=== PATIENT | female | born 1950 | race Caucasian/White ===

== ENCOUNTER 2022-03-07 03:06 | Inpatient (IN) | payer MEDICARE ==
[2022-03-07 03:52] LABS: #Basophils 0.1 10x3/uL (0.0-0.2); #Eosinphils 1.8 10x3/uL (0.0-0.5); #Monocytes 0.8 10x3/uL (0.0-1.1); %Basophils 0.4 % (0.0-2.0); %Eosinophils 10.6 % (0.0-6.0); %Lymphocytes 17.6 % (18.0-47.0); %Monocytes 4.6 % (0.0-10.0); Hemoglobin 14.1 g/dL (12.0-15.5); Mean Corpuscular HGB CONC 33.3 g/dL (32.0-36.0); Mean Corpuscular Hemoglobin 29.5 pg (27.0-33.0); Mean Corpuscular Volume 88.5 fl (81.6-98.3); Mean Platelet Volume 9.8 fl (7.4-10.4); Platelet Count 322 10x3/uL (150-450); RBC Distribution Width 14.1 % (11.5-14.5); Red Blood Cell (RBC) Count 4.78 10x6/uL (3.90-5.03); White Blood Cell (WBC) Count 16.6 10x3/uL (3.5-10.5)
[2022-03-07 04:08] LABS: ALT (SGPT) 18 U/L (8-55); AST (SGOT) 23 U/L (5-34); Albumin 3.9 g/dL (3.4-4.8); Alkaline Phosphatase 75 U/L (40-110); Anion Gap 17 mmol/L (10-20); BUN (Urea Nitrogen) 9 mg/dL (9.8-20.1); Bilirubin, Total 0.4 mg/dL (0.2-1.2); Calc. Creatinine Clearance 0 mL/min (70-130); Calcium 9.6 mg/dL (7.8-10.44); Carbon Dioxide 25 mmol/L (23-31); Chloride 99 mmol/L (98-107); Globulin 4.3 g/dL (2.4-3.5); Glucose 103 mg/dL (83-110); Potassium 3.5 mmol/L (3.5-5.1); Protein, Total 8.2 g/dL (5.8-8.1); Sodium 137 mmol/L (136-145)
[2022-03-07 04:41] LABS: CKMB 6.1 ng/mL (0-6.6)
[2022-03-07 04:56] LABS: Bilirubin Neg (Negative); Blood, Urine 10 (Negative); Clarity Cloudy (Clear); Glucose, Urine (Dipstick) 250 mg/dL (Negative); Ketone, Urine Negative (Negative); Leukocyte 500 (Negative); Nitrite Positive (Negative); Protein, Urine (Dipstick) 15 mg/dl (Neg-Trace); Urobilinogen Normal mg/dL (Less than 2)
[2022-03-07 05:05] LABS: RBC/HPF 0-3 HPF (0-3)
[2022-03-07 05:06] LABS: Bacteria/HPF 3+ HPF (None Seen)
[2022-03-07] MEDS ORDERED: cefTRIAXone\\ROCEPHIN 2 GM VIAL ONE (05:10)
[2022-03-07] MEDS ORDERED: Acetaminophen 500 MG TAB ONE (05:22)
[2022-03-07 05:31] LABS: SARS-CoV-2 NAA Rapid Test Not Detected (NotDetected)
[2022-03-07] MEDS ORDERED: Senokot S 8.6-50 MG TAB PO PRN (06:14)
[2022-03-07] MEDS ORDERED: Ondansetron PF 4 MG/2 ML Vial IVP PRN (06:14)
[2022-03-07] MEDS ORDERED: Ondansetron ODT 4 MG TAB PO PRN (06:14)
[2022-03-07] MEDS ORDERED: HYDROcodone/Acetaminophen 7.5/325 mg Tablet PO PRN (06:14)
[2022-03-07 06:17] VITALS: BMI 34.2
[2022-03-07] MEDS: D5 1/2 NS w/20 mEq KCL 1,000 ML IV SCH ×2 (06:40→18:28)
[2022-03-07] MEDS: traMADol HCl 50 MG TAB PO PRN ×2 (06:41→22:11)
[2022-03-07] MEDS ORDERED: Potassium Chloride 20 MEQ TAB PO SCH (07:00)
[2022-03-07 07:36] LABS: Magnesium 1.6 mg/dL (1.6-2.6)
[2022-03-07 07:42] LABS: Troponin I 0.113 ng/mL (< 0.028)
[2022-03-07] MEDS: HYDROcodone/Acetaminophen 7.5/325 mg Tablet PO PRN ×3 (08:23→20:49)
[2022-03-07] MEDS: Enoxaparin Sodium 40 MG/0.4 ML SYRINGE SC SCH (08:25)
[2022-03-07] MEDS ORDERED: Lisinopril 10 MG TAB PO SCH (09:00)
[2022-03-07] MEDS ORDERED: Amlodipine 10 MG TAB PO SCH (09:00)
[2022-03-07 11:00] LABS: Troponin I 0.115 ng/mL (< 0.028)
[2022-03-07] MEDS: Morphine 2 MG/ML VIAL SLOW IVP PRN ×2 (16:47→23:48)
[2022-03-07] MEDS: Atorvastatin Calcium 10 MG TAB PO SCH (20:50)
[2022-03-07] MEDS: Lantus 1000 UNITS/10 ML VIAL SC SCH (22:20)
[2022-03-07 23:32] LABS: Glucose POC Confirmation 134 mg/dl (83-110)
[2022-03-08] MEDS: HYDROcodone/Acetaminophen 7.5/325 mg Tablet PO PRN ×5 (02:49→23:02)
[2022-03-08] MEDS ORDERED: D5 1/2 NS w/20 mEq KCL 1,000 ML IV SCH (03:00)
[2022-03-08] MEDS: cefTRIAXone\\ROCEPHIN 2 GM in Sodium Chloride 0.9% 100 ML IVPB SCH (04:50)
[2022-03-08 05:05] LABS: Hemoglobin 13.5 g/dL (12.0-15.5); Mean Corpuscular HGB CONC 32.8 g/dL (32.0-36.0); Mean Corpuscular Hemoglobin 28.9 pg (27.0-33.0); Mean Corpuscular Volume 88.2 fl (81.6-98.3); Mean Platelet Volume 9.9 fl (7.4-10.4); Platelet Count 346 10x3/uL (150-450); RBC Distribution Width 14.6 % (11.5-14.5); Red Blood Cell (RBC) Count 4.67 10x6/uL (3.90-5.03); White Blood Cell (WBC) Count 12.9 10x3/uL (3.5-10.5)
[2022-03-08] MEDS: traMADol HCl 50 MG TAB PO PRN ×3 (05:11→20:43)
[2022-03-08 05:17] LABS: Anion Gap 14 mmol/L (10-20); BUN (Urea Nitrogen) 8 mg/dL (9.8-20.1); Calc. Creatinine Clearance 77 mL/min (70-130); Calcium 9.3 mg/dL (7.8-10.44); Carbon Dioxide 26 mmol/L (23-31); Chloride 103 mmol/L (98-107); Glucose 140 mg/dL (83-110); Potassium 3.6 mmol/L (3.5-5.1); Sodium 139 mmol/L (136-145)
[2022-03-08 06:14] LABS: MDiff Complete? YES
[2022-03-08 06:15] LABS: Platelet Morphology Comment Appears Adequate; RBC Morphology Normal
[2022-03-08 06:18] LABS: Band 1 % (5-11); Eosinophils 16 % (0-10); Lymphocytes 49 % (21-51); Monocytes 3 % (0-10); Neutrophil 31 % (42-75)
[2022-03-08] MEDS ORDERED: cefTRIAXone Sodium 2,000 MG in Syringe 0 ML IVPB SCH (06:30)
[2022-03-08] MEDS: Morphine 2 MG/ML VIAL SLOW IVP PRN (08:32)
[2022-03-08] MEDS: Enoxaparin Sodium 40 MG/0.4 ML SYRINGE SC SCH (08:32)
[2022-03-08] MEDS: Amlodipine 10 MG TAB PO SCH (08:34)
[2022-03-08] MEDS: Empagliflozin 10 MG TAB PO SCH (08:40)
[2022-03-08] MEDS ORDERED: TRAMADOL HCL 300 MG PO SCH (09:00)
[2022-03-08] MEDS ORDERED: Lisinopril 10 MG TAB PO SCH (09:00)
[2022-03-08] MEDS: Labetalol HCl 100 MG/20 ML VIAL SLOW IVP PRN ×2 (18:51→23:17)
[2022-03-08] MEDS: Atorvastatin Calcium 10 MG TAB PO SCH (20:43)
[2022-03-08] MEDS: Lantus 1000 UNITS/10 ML VIAL SC SCH (20:45)
[2022-03-09 05:31] LABS: #Basophils 0.1 10x3/uL (0.0-0.2); #Eosinphils 2.7 10x3/uL (0.0-0.5); #Monocytes 0.8 10x3/uL (0.0-1.1); #Neutrophils 3.7 10x3/uL (1.5-8.4); %Basophils 0.7 % (0.0-2.0); %Eosinophils 20.5 % (0.0-6.0); %Lymphocytes 43.6 % (18.0-47.0); %Monocytes 6.4 % (0.0-10.0); %Neutrophils 27.9 % (40.0-75.0); Hemoglobin 13.7 g/dL (12.0-15.5); Mean Corpuscular HGB CONC 33.3 g/dL (32.0-36.0); Mean Corpuscular Hemoglobin 29.4 pg (27.0-33.0); Mean Corpuscular Volume 88.4 fl (81.6-98.3); Mean Platelet Volume 9.8 fl (7.4-10.4); Platelet Count 323 10x3/uL (150-450); RBC Distribution Width 14.5 % (11.5-14.5); Red Blood Cell (RBC) Count 4.66 10x6/uL (3.90-5.03); White Blood Cell (WBC) Count 13.2 10x3/uL (3.5-10.5)
[2022-03-09 05:38] LABS: Manual Diff?? YES
[2022-03-09] MEDS: cefTRIAXone\\ROCEPHIN 2 GM in Sodium Chloride 0.9% 100 ML IVPB SCH (05:41)
[2022-03-09] MEDS: HYDROcodone/Acetaminophen 7.5/325 mg Tablet PO PRN (05:41)
[2022-03-09 05:49] LABS: Anion Gap 15 mmol/L (10-20); BUN (Urea Nitrogen) 9 mg/dL (9.8-20.1); Calc. Creatinine Clearance 77 mL/min (70-130); Calcium 9.7 mg/dL (7.8-10.44); Carbon Dioxide 26 mmol/L (23-31); Chloride 101 mmol/L (98-107); Glucose 92 mg/dL (83-110); Sodium 138 mmol/L (136-145)
[2022-03-09 06:03] LABS: Band 3 % (5-11); Eosinophils 13 % (0-10); Lymphocytes 35 % (21-51); Metamyelocyte 2 % (0-0); Monocytes 2 % (0-10); Neutrophil 33 % (42-75); Reactive Lymphocytes 12 % (0-10)
[2022-03-09 06:04] LABS: Platelet Morphology Comment Appears Adequate
[2022-03-09 06:10] LABS: MDiff Complete? YES
[2022-03-09] MEDS: traMADol HCl 50 MG TAB PO PRN (08:29)
[2022-03-09] MEDS: Amlodipine 10 MG TAB PO SCH (08:30)
[2022-03-09] MEDS: Enoxaparin Sodium 40 MG/0.4 ML SYRINGE SC SCH (08:30)
[2022-03-09] MEDS: Empagliflozin 10 MG TAB PO SCH (08:31)
[2022-03-09] MEDS ORDERED: Lisinopril 20 MG TAB PO SCH (09:00)
[2022-03-09 12:04] VITALS: BP 169/77; TEMP 98.6
== END 2022-03-09 12:10 | disposition home or self-care (01) | DRG 917 ==
LOC: CSHERS 03:06 → INTOOBSV 06:13 → CSHTELE 06:13 → OBSVTOIN 03-08 17:41
PROVIDERS: ADMIT Family Medicine; ATTEND Hospitalist
DX: T38.3X1A Poisoning by insulin and oral hypoglycemic [antidiabetic] drugs, accidental (unintentional), initial encounter (principal); G93.41 Metabolic encephalopathy; N39.0 Urinary tract infection, site not specified; I50.30 Unspecified diastolic (congestive) heart failure; E11.649 Type 2 diabetes mellitus with hypoglycemia without coma; G89.29 Other chronic pain; M54.9 Dorsalgia, unspecified; M54.2 Cervicalgia; J44.9 Chronic obstructive pulmonary disease, unspecified; E78.5 Hyperlipidemia, unspecified; R79.89 Other specified abnormal findings of blood chemistry; I11.0 Hypertensive heart disease with heart failure; M79.7 Fibromyalgia; D50.9 Iron deficiency anemia, unspecified; E66.9 Obesity, unspecified; F17.210 Nicotine dependence, cigarettes, uncomplicated; Z82.49 Family history of ischemic heart disease and other diseases of the circulatory system; Z79.4 Long term (current) use of insulin; Z79.84 Long term (current) use of oral hypoglycemic drugs; Z79.899 Other long term (current) drug therapy; Z90.49 Acquired absence of other specified parts of digestive tract; Z82.5 Family history of asthma and other chronic lower respiratory diseases
CPT/HCPCS: 36415; 36416; 51701; 70450; 71045; 80048; 80053; 81003; 81015; 82553; 83605; 83735; 84484; 85025; 87040; 87086; 87186; 93005; 93010; 96365; 96366; 96368; 96372; 96374; 96375; 96376; G0378; J0696; J1650; J1815; J2270; J3480; J3490

== ENCOUNTER 2022-04-14 09:39 | Emergency (ER) | payer MEDICARE ==
[2022-04-14] MEDS ORDERED: Morphine 4 MG/ML VIAL ONE (10:24)
[2022-04-14] MEDS ORDERED: Ondansetron PF 4 MG/2 ML Vial ONE (10:24)
[2022-04-14 10:26] LABS: #Basophils 0.1 10x3/uL (0.0-0.2); #Eosinphils 0.3 10x3/uL (0.0-0.5); #Monocytes 1.1 10x3/uL (0.0-1.1); #Neutrophils 5.9 10x3/uL (1.5-8.4); %Eosinophils 2.5 % (0.0-6.0); %Monocytes 10.7 % (0.0-10.0); %Neutrophils 58.3 % (40.0-75.0); Hemoglobin 12.2 g/dL (12.0-15.5); Mean Corpuscular HGB CONC 33.2 g/dL (32.0-36.0); Mean Corpuscular Hemoglobin 29.8 pg (27.0-33.0); Mean Corpuscular Volume 89.5 fl (81.6-98.3); Mean Platelet Volume 8.8 fl (7.4-10.4); Platelet Count 644 10x3/uL (150-450); RBC Distribution Width 15.3 % (11.5-14.5); White Blood Cell (WBC) Count 10.1 10x3/uL (3.5-10.5)
[2022-04-14 10:41] LABS: ALT (SGPT) 16 U/L (8-55); AST (SGOT) 21 U/L (5-34); Albumin 3.6 g/dL (3.4-4.8); Alkaline Phosphatase 142 U/L (40-110); Anion Gap 14 mmol/L (10-20); BUN (Urea Nitrogen) 4 mg/dL (9.8-20.1); Bilirubin, Total 0.6 mg/dL (0.2-1.2); Calc. Creatinine Clearance 0 mL/min (70-130); Carbon Dioxide 25 mmol/L (23-31); Chloride 97 mmol/L (98-107); Estimated GFR 82; Globulin 3.7 g/dL (2.4-3.5); Glucose 237 mg/dL (83-110); Potassium 3.6 mmol/L (3.5-5.1); Protein, Total 7.3 g/dL (5.8-8.1); Sodium 132 mmol/L (136-145)
[2022-04-14 10:49] LABS: Calcium 5.6 mg/dL (7.8-10.44)
[2022-04-14] MEDS ORDERED: Calcium Chloride 1 GM/10 ML Abboject SYRINGE ONE (11:41)
== END 2022-04-14 12:03 | disposition home or self-care (01) ==
LOC: CSHERS 09:39
DX: R19.7 Diarrhea, unspecified (principal); E11.9 Type 2 diabetes mellitus without complications; I10 Essential (primary) hypertension; F17.210 Nicotine dependence, cigarettes, uncomplicated
CPT/HCPCS: 80053; 83605; 85025; 96374; 96375; J2270; J2405

== ENCOUNTER 2023-04-14 14:24 | Outpatient (CLI) | payer MEDICARE ==
[2023-04-14 15:49] LABS: Hemoglobin 11.4 g/dL (12.0-15.5); Mean Corpuscular HGB CONC 31.9 g/dL (32.0-36.0); Mean Corpuscular Hemoglobin 27.9 pg (27.0-33.0); Mean Corpuscular Volume 87.3 fl (81.6-98.3); Mean Platelet Volume 9.3 fl (7.4-10.4); Platelet Count 367 10x3/uL (150-450); RBC Distribution Width 14.8 % (11.5-14.5); Red Blood Cell (RBC) Count 4.09 10x6/uL (3.90-5.03); White Blood Cell (WBC) Count 8.8 10x3/uL (3.5-10.5)
[2023-04-14 16:06] LABS: INR-International Normal Ratio 0.9; PTT 27.9 sec (22.0-33.0); Prothrombin Time 10.2 sec (9.5-12.1)
[2023-04-14 16:07] LABS: Anion Gap 9 mmol/L (10-20); BUN (Urea Nitrogen) 12 mg/dL (9.8-20.1); Calc. Creatinine Clearance 0 mL/min (70-130); Carbon Dioxide 29 mmol/L (23-31); Chloride 104 mmol/L (98-107); Estimated GFR 65; Glucose 63 mg/dL (83-110); Sodium 138 mmol/L (136-145)
== END 2023-04-14 14:25 | disposition home or self-care (01) ==
LOC: CSHLAB 14:24
PROVIDERS: ATTEND Orthopaedic Surgery
DX: Z01.812 Encounter for preprocedural laboratory examination (principal); M54.2 Cervicalgia; M54.12 Radiculopathy, cervical region
CPT/HCPCS: 80048; 85027; 85610; 85730

== ENCOUNTER → 2023-04-21 | Day surgery (SDC) | payer MEDICARE ==
[~2023-04-21] MED LIST: Phenylephrine 40 MG/NS 250 ML 250 ML ONE; Propofol 1,000 MG/100 ML VIAL IV ONE
== END ==
LOC: CSHSDC 05:45
PROVIDERS: ATTEND Orthopaedic Surgery
DX: M54.12 Radiculopathy, cervical region (principal); Z53.9 Procedure and treatment not carried out, unspecified reason
CPT/HCPCS: J2704

== ENCOUNTER 2023-06-03 08:08 | Outpatient (CLI) | payer MEDICARE | END 2023-06-03 08:09 | disposition home or self-care (01) | LOC: CSHMAMMO 08:08 | PROVIDERS: ATTEND Internal Medicine | DX: Z12.31 Encounter for screening mammogram for malignant neoplasm of breast (principal); Z13.820 Encounter for screening for osteoporosis; M85.832 Other specified disorders of bone density and structure, left forearm; M85.831 Other specified disorders of bone density and structure, right forearm; Z91.89 Other specified personal risk factors, not elsewhere classified | CPT/HCPCS: 77063; 77067; 77080 ==

== ENCOUNTER 2023-08-30 13:38 | Outpatient (CLI) | payer MEDICARE | END 2023-08-30 13:39 | disposition home or self-care (01) | LOC: CSHCP 13:38 | PROVIDERS: ATTEND Internal Medicine Critical Care Medicine | DX: J44.9 Chronic obstructive pulmonary disease, unspecified (principal); J98.4 Other disorders of lung | CPT/HCPCS: 94010; 94726; 94729; 94760 ==

== ENCOUNTER 2023-09-08 11:44 | Outpatient (CLI) | payer MEDICARE ==
[2023-09-08 13:57] LABS: Hematocrit 34.2 % (34.9-44.5); Hemoglobin 10.7 g/dL (12.0-15.5); Mean Corpuscular HGB CONC 31.3 g/dL (32.0-36.0); Mean Corpuscular Hemoglobin 26.6 pg (27.0-33.0); Mean Corpuscular Volume 84.9 fl (81.6-98.3); Mean Platelet Volume 9.7 fl (7.4-10.4); Platelet Count 330 10x3/uL (150-450); RBC Distribution Width 15.2 % (11.5-14.5); Red Blood Cell (RBC) Count 4.03 10x6/uL (3.90-5.03); White Blood Cell (WBC) Count 6.7 10x3/uL (3.5-10.5)
[2023-09-08 14:17] LABS: Anion Gap 12 mmol/L (10-20); BUN (Urea Nitrogen) 11 mg/dL (9.8-20.1); Calc. Creatinine Clearance 0 mL/min (70-130); Calcium 9.1 mg/dL (7.8-10.44); Carbon Dioxide 25 mmol/L (23-31); Chloride 103 mmol/L (98-107); Estimated GFR 61; Glucose 214 mg/dL (83-110); Potassium 3.9 mmol/L (3.5-5.1); Sodium 136 mmol/L (136-145)
[2023-09-08 14:23] LABS: PTT 27.9 sec (22.0-33.0); Prothrombin Time 10.3 sec (9.5-12.1)
[2023-09-08 16:53] LABS: Hemoglobin A1c 7.9 % (4.0-6.0)
== END 2023-09-08 11:45 | disposition home or self-care (01) ==
LOC: CSHLAB 11:44
PROVIDERS: ATTEND Orthopaedic Surgery
DX: Z01.818 Encounter for other preprocedural examination (principal); M54.2 Cervicalgia; M54.12 Radiculopathy, cervical region
CPT/HCPCS: 80048; 83036; 85027; 85610; 85730; 86850; 86900; 86901; 93005; 93010

== ENCOUNTER 2023-09-13 05:36 | Day surgery (SDC) | payer MEDICARE ==
[2023-09-08 13:16] VITALS: BMI 34.7
[2023-09-08 13:57] LABS: Hematocrit 34.2 % (34.9-44.5); Hemoglobin 10.7 g/dL (12.0-15.5); Mean Corpuscular HGB CONC 31.3 g/dL (32.0-36.0); Mean Corpuscular Hemoglobin 26.6 pg (27.0-33.0); Mean Corpuscular Volume 84.9 fl (81.6-98.3); Mean Platelet Volume 9.7 fl (7.4-10.4); Platelet Count 330 10x3/uL (150-450); RBC Distribution Width 15.2 % (11.5-14.5); Red Blood Cell (RBC) Count 4.03 10x6/uL (3.90-5.03); White Blood Cell (WBC) Count 6.7 10x3/uL (3.5-10.5)
[2023-09-08 14:17] LABS: Anion Gap 12 mmol/L (10-20); BUN (Urea Nitrogen) 11 mg/dL (9.8-20.1); Calc. Creatinine Clearance 0 mL/min (70-130); Calcium 9.1 mg/dL (7.8-10.44); Carbon Dioxide 25 mmol/L (23-31); Chloride 103 mmol/L (98-107); Estimated GFR 61; Glucose 214 mg/dL (83-110); Potassium 3.9 mmol/L (3.5-5.1); Sodium 136 mmol/L (136-145)
[2023-09-08 14:23] LABS: PTT 27.9 sec (22.0-33.0); Prothrombin Time 10.3 sec (9.5-12.1)
[2023-09-08 16:53] LABS: Hemoglobin A1c 7.9 % (4.0-6.0)
[2023-09-13] MEDS ORDERED: Fentanyl 250 MCG/5 ML VIAL ONE (06:22)
[2023-09-13] MEDS ORDERED: PROPOFOL 20 ML ONE (06:22)
[2023-09-13] MEDS ORDERED: PHENYLEPHRINE-NS 100 MCG/ML 10 ML SYRINGE ONE ×2 (06:22→08:00)
[2023-09-13] MEDS ORDERED: Lidocaine 1% PF 5 ML VIAL ONE (06:22)
[2023-09-13] MEDS ORDERED: Succinylcholine 200 MG/10 ml SYRINGE FS ONE (06:22)
[2023-09-13] MEDS ORDERED: Dexmedetomidine 200 MCG/2 ML VIAL ONE (06:33)
[2023-09-13] MEDS ORDERED: Propofol 1,000 MG/100 ML VIAL IV ONE ×2 (06:33→08:06)
[2023-09-13] MEDS ORDERED: CEFAZOLIN 2 GM VIAL ONE (07:03)
[2023-09-13] MEDS ORDERED: Midazolam HCl 2 mg/2 ml Vial ONE (07:03)
[2023-09-13] MEDS ORDERED: Famotidine/PF 20 mg/2ml Vial ONE (07:11)
[2023-09-13] MEDS ORDERED: Ondansetron PF 4 MG/2 ML Vial ONE (07:37)
[2023-09-13] MEDS ORDERED: Dexamethasone 20 MG/5 ML VIAL ONE (07:37)
[2023-09-13] MEDS ORDERED: ePHEDrine Sulfate 50 MG/10 ML VIAL ONE (07:51)
[2023-09-13] MEDS ORDERED: fentaNYL 50 mcg/mL 1 mL Vial ONE (10:12)
[2023-09-13] MEDS ORDERED: TETANUS, DIPHTHERIA TOX,ADULT (TDVAX) 0.5 ML VIAL IM ONE (10:20)
[2023-09-13] MEDS ORDERED: traMADol HCl 50 MG TAB PO PRN ×2 (10:20)
[2023-09-13] MEDS ORDERED: HYDROcodone/Acetaminophen 10/325 mg Tablet PO PRN ×2 (10:20→10:22)
[2023-09-13] MEDS ORDERED: Morphine 4 MG/ML VIAL SLOW IVP PRN (10:20)
[2023-09-13] MEDS ORDERED: NICOTINE POLACRILEX GUM BUC PRN (10:22)
[2023-09-13] MEDS ORDERED: CEFAZOLIN 2 GM in Sodium Chloride 0.9% 100 ML IVPB SCH (10:30)
[2023-09-13] MEDS ORDERED: Communication Order-Pharmacy FS SCH (10:30)
[2023-09-13] MEDS ORDERED: HYDROmorphone 0.5 MG/0.5 ML SYRINGE ONE ×3 (10:53→11:29)
[2023-09-13] MEDS ORDERED: Ketorolac Tromethamine 30 MG/ML VIAL ONE (11:18)
[2023-09-13] MEDS ORDERED: Cyclobenzaprine 10 MG TAB PO SCH (15:00)
[2023-09-13] MEDS ORDERED: Glimepiride 4 MG TAB PO SCH (21:00)
[2023-09-13] MEDS ORDERED: Aspirin 81 mg Enteric Coated Tablet PO SCH (21:00)
[2023-09-13] MEDS ORDERED: Amlodipine 10 MG TAB PO SCH (21:00)
[2023-09-14] MEDS ORDERED: INSULIN DEGLUDEC 200 UNIT/ML SQ SCH (09:00)
[2023-09-14] MEDS ORDERED: [UNRECOGNIZED DRUG - OTHER] SQ SCH (09:00)
== END 2023-09-13 13:20 | disposition home or self-care (01) ==
LOC: CSHSDC 05:36
PROVIDERS: ATTEND Orthopaedic Surgery
PROC: 0RG10J1 Fusion of Cervical Vertebral Joint with Synthetic Substitute, Posterior Approach, Posterior Column, Open Approach (ICD-10-PCS; principal; 2023-09-13)
DX: M50.021 Cervical disc disorder at C4-C5 level with myelopathy (principal); M50.121 Cervical disc disorder at C4-C5 level with radiculopathy; M50.022 Cervical disc disorder at C5-C6 level with myelopathy; M50.122 Cervical disc disorder at C5-C6 level with radiculopathy; M48.02 Spinal stenosis, cervical region; E11.9 Type 2 diabetes mellitus without complications; J44.9 Chronic obstructive pulmonary disease, unspecified; E78.5 Hyperlipidemia, unspecified; I10 Essential (primary) hypertension; Z88.8 Allergy status to other drugs, medicaments and biological substances; Z90.49 Acquired absence of other specified parts of digestive tract; Z90.710 Acquired absence of both cervix and uterus; Z79.84 Long term (current) use of oral hypoglycemic drugs; Z79.4 Long term (current) use of insulin; Z79.899 Other long term (current) drug therapy
CPT/HCPCS: 22551; 22552; 22845; 22853 ×2; 72040; 80048; 82962; 83036; 85027; 85610; 85730; 86850; 86900; 86901; 94640; J3010; 36416; C1889; J1100; J1170; J1885; J2250; J2405; J2704; J7611; S0028

== ENCOUNTER 2023-09-17 05:32 | Inpatient (IN) | payer MEDICARE ==
[2023-09-17] MEDS ORDERED: EPINEPHrine 1 MG/ML VIAL ONE (06:35)
[2023-09-17] MEDS ORDERED: Bupivacaine 0.25% HCL 30 ML VIAL ONE (06:35)
[2023-09-17 06:58] VITALS: BMI 35.6
[2023-09-17] MEDS ORDERED: SUGAMMADEX SODIUM 200 MG/2 ML VIAL ONE (07:02)
[2023-09-17] MEDS ORDERED: Dexmedetomidine 200 MCG/2 ML VIAL ONE (07:02)
[2023-09-17] MEDS ORDERED: KETAMINE 100 MG/ML (5ML VIAL) ONE (07:05)
[2023-09-17] MEDS ORDERED: Lidocaine 1% PF 5 ML VIAL ONE (07:11)
[2023-09-17] MEDS ORDERED: PROPOFOL 160 ML ONE (07:11)
[2023-09-17] MEDS ORDERED: PHENYLEPHRINE-NS 100 MCG/ML 10 ML SYRINGE ONE (07:12)
[2023-09-17] MEDS ORDERED: Fentanyl 250 MCG/5 ML VIAL ONE (07:12)
[2023-09-17] MEDS ORDERED: Midazolam HCl 2 mg/2 ml Vial ONE (07:12)
[2023-09-17] MEDS ORDERED: Glycopyrrolate 0.2 MG/ML 5 ML SYRINGE ONE (07:12)
[2023-09-17] MEDS ORDERED: Dexamethasone 20 MG/5 ML VIAL ONE (07:12)
[2023-09-17] MEDS ORDERED: Sodium Chloride 0.9% 10 ML ONE (07:17)
[2023-09-17] MEDS ORDERED: ePHEDrine Sulfate 50 MG/10 ML VIAL ONE ×2 (07:17→09:33)
[2023-09-17] MEDS ORDERED: Famotidine/PF 20 mg/2ml Vial ONE (07:51)
[2023-09-17] MEDS ORDERED: Lidocaine 4% PF 5 ML AMP ONE (08:01)
[2023-09-17] MEDS ORDERED: CEFAZOLIN 2 GM VIAL ONE (08:15)
[2023-09-17] MEDS ORDERED: Promethazine HCl 25 MG/ML VIAL IM PRN (10:30)
[2023-09-17] MEDS ORDERED: Acetaminophen/Codeine 30-300mg Tablet PO PRN (10:30)
[2023-09-17] MEDS ORDERED: RENALLY DOSE ABX FS PRN (10:30)
[2023-09-17] MEDS ORDERED: HYDROcodone/Acetaminophen 10/325 mg Tablet PO PRN (10:32)
[2023-09-17] MEDS ORDERED: diphenhydrAMINE 25 MG CAP PO PRN (10:40)
[2023-09-17] MEDS ORDERED: Dextrose 5% in Water 1,000 ML IV PRN (10:45)
[2023-09-17] MEDS ORDERED: Glucagon 1 MG/ML KIT IM PRN (10:45)
[2023-09-17] MEDS ORDERED: Dextrose 50% Abboject 50 ML SYRINGE IVP PRN (10:45)
[2023-09-17] MEDS: Cyclobenzaprine 10 MG TAB PO SCH ×2 (15:40→21:04)
[2023-09-17] MEDS: CEFAZOLIN 2 GM in Sodium Chloride 0.9% 100 ML IVPB SCH ×2 (15:40→23:09)
[2023-09-17] MEDS: Glimepiride 4 MG TAB PO SCH (15:40)
[2023-09-17] MEDS: HYDROcodone/Acetaminophen 10/325 mg Tablet PO PRN (21:02)
[2023-09-17] MEDS: Simvastatin 10 MG TAB PO SCH (21:03)
[2023-09-17] MEDS: Pioglitazone HCl 15 MG TAB PO SCH (21:03)
[2023-09-17] MEDS: Aspirin 81 mg Enteric Coated Tablet PO SCH (21:04)
[2023-09-17] MEDS: Amlodipine 10 MG TAB PO SCH (21:04)
[2023-09-18] MEDS: HYDROcodone/Acetaminophen 10/325 mg Tablet PO PRN ×3 (05:09→14:07)
[2023-09-18] MEDS: Morphine 4 MG/ML VIAL SLOW IVP PRN ×3 (06:05→20:30)
[2023-09-18] MEDS ORDERED: TETANUS, DIPHTHERIA TOX,ADULT (TDVAX) 0.5 ML VIAL IM ONE (09:00)
[2023-09-18] MEDS: CEFAZOLIN 2 GM in Sodium Chloride 0.9% 100 ML IVPB SCH ×2 (09:02→17:35)
[2023-09-18] MEDS: Lantus 1000 UNITS/10 ML VIAL SC SCH (09:04)
[2023-09-18] MEDS: Cyclobenzaprine 10 MG TAB PO SCH ×3 (09:06→20:35)
[2023-09-18] MEDS: Aspirin 81 mg Enteric Coated Tablet PO SCH ×2 (09:06→20:30)
[2023-09-18] MEDS: Glimepiride 4 MG TAB PO SCH (17:35)
[2023-09-18] MEDS: Pioglitazone HCl 15 MG TAB PO SCH (20:29)
[2023-09-18] MEDS: Amlodipine 10 MG TAB PO SCH (20:30)
[2023-09-18] MEDS: Simvastatin 10 MG TAB PO SCH (20:30)
[2023-09-19] MEDS: Morphine 4 MG/ML VIAL SLOW IVP PRN ×2 (03:00→10:43)
[2023-09-19] MEDS: Cyclobenzaprine 10 MG TAB PO SCH ×3 (08:59→16:29)
[2023-09-19] MEDS: Aspirin 81 mg Enteric Coated Tablet PO SCH (08:59)
[2023-09-19] MEDS: HYDROcodone/Acetaminophen 10/325 mg Tablet PO PRN ×2 (08:59→13:36)
[2023-09-19] MEDS: Lantus 1000 UNITS/10 ML VIAL SC SCH (09:00)
[2023-09-19 13:34] VITALS: BP 154/88; TEMP 99.1
[2023-09-19] MEDS: Glimepiride 4 MG TAB PO SCH (16:28)
== END 2023-09-19 18:37 | disposition home or self-care (01) | DRG 472 ==
LOC: CSHTELE 05:32
PROVIDERS: ADMIT Orthopaedic Surgery; ATTEND Orthopaedic Surgery
PROC: 0RG20AJ Fusion of 2 or more Cervical Vertebral Joints with Interbody Fusion Device, Posterior Approach, Anterior Column, Open Approach (ICD-10-PCS; principal; 2023-09-17)
PROC: 4A11X4G Monitoring of Peripheral Nervous Electrical Activity, Intraoperative, External Approach (ICD-10-PCS; 2023-09-17)
DX: M48.02 Spinal stenosis, cervical region (principal); G99.2 Myelopathy in diseases classified elsewhere; M54.12 Radiculopathy, cervical region; M25.511 Pain in right shoulder; F17.210 Nicotine dependence, cigarettes, uncomplicated; E11.9 Type 2 diabetes mellitus without complications
CPT/HCPCS: 36415; 36416; 72040; 86850; 86900; 86901; 94760; C1713; C1889; J0171; J1100; J1815; J2250; J2270; J2704; J3010; J3490; S0020; S0028

== ENCOUNTER 2023-10-01 05:45 | Day surgery (SDC) | payer MEDICARE ==
[2023-09-30 10:36] VITALS: BMI 34.7
[2023-10-01] MEDS ORDERED: EPINEPHrine 1 MG/ML VIAL ONE (06:19)
[2023-10-01] MEDS ORDERED: Bupivacaine 0.25% HCL 30 ML VIAL ONE (06:20)
[2023-10-01] MEDS ORDERED: Ondansetron PF 4 MG/2 ML Vial ONE (06:30)
[2023-10-01] MEDS ORDERED: Lidocaine 1% PF 5 ML VIAL ONE (06:30)
[2023-10-01] MEDS ORDERED: Dexamethasone 20 MG/5 ML VIAL ONE (06:30)
[2023-10-01] MEDS ORDERED: fentaNYL 50 mcg/mL 1 mL Vial ONE (06:30)
[2023-10-01] MEDS ORDERED: Midazolam HCl 2 mg/2 ml Vial ONE (06:30)
[2023-10-01] MEDS ORDERED: PROPOFOL 20 ML ONE (06:30)
[2023-10-01] MEDS ORDERED: Rocuronium Bromide 10 MG/ML (10ML VIAL) ONE (06:30)
[2023-10-01] MEDS ORDERED: SUGAMMADEX SODIUM 200 MG/2 ML VIAL ONE (06:32)
[2023-10-01] MEDS ORDERED: Phenylephrine 10 MG/ML VIAL ONE (06:33)
[2023-10-01] MEDS ORDERED: Famotidine/PF 20 mg/2ml Vial ONE (06:44)
[2023-10-01 06:45] LABS: Hematocrit 34.4 % (34.9-44.5); Hemoglobin 10.8 g/dL (12.0-15.5); Mean Corpuscular HGB CONC 31.4 g/dL (32.0-36.0); Mean Corpuscular Hemoglobin 26.2 pg (27.0-33.0); Mean Corpuscular Volume 83.5 fl (81.6-98.3); Mean Platelet Volume 8.8 fl (7.4-10.4); PTT 28.5 sec (22.0-33.0); Platelet Count 528 10x3/uL (150-450); Prothrombin Time 10.5 sec (9.5-12.1); RBC Distribution Width 15.9 % (11.5-14.5); Red Blood Cell (RBC) Count 4.12 10x6/uL (3.90-5.03)
[2023-10-01 06:51] LABS: Anion Gap 15 mmol/L (10-20); BUN (Urea Nitrogen) 10 mg/dL (9.8-20.1); Calc. Creatinine Clearance 70 mL/min (70-130); Calcium 9.2 mg/dL (7.8-10.44); Carbon Dioxide 23 mmol/L (23-31); Chloride 102 mmol/L (98-107); Estimated GFR 62; Glucose 69 mg/dL (83-110); Potassium 3.6 mmol/L (3.5-5.1); Sodium 136 mmol/L (136-145)
[2023-10-01] MEDS ORDERED: CEFAZOLIN 2 GM VIAL ONE (06:55)
[2023-10-01] MEDS ORDERED: HYDROcodone/Acetaminophen 10/325 mg Tablet PO PRN (10:08)
[2023-10-01] MEDS ORDERED: NICOTINE POLACRILEX GUM BUC PRN (10:08)
[2023-10-01] MEDS ORDERED: Albuterol 2.5 MG (3 mL) NEB NEB PRN (10:08)
[2023-10-01] MEDS ORDERED: Cyclobenzaprine 10 MG TAB PO SCH (15:00)
[2023-10-01] MEDS ORDERED: Pravastatin Sodium 20 MG TAB PO SCH (21:00)
[2023-10-01] MEDS ORDERED: Amlodipine 10 MG TAB PO SCH (21:00)
[2023-10-01] MEDS ORDERED: Pioglitazone HCl 15 MG TAB PO SCH (21:00)
[2023-10-01] MEDS ORDERED: Glimepiride 4 MG TAB PO SCH (21:00)
[2023-10-02] MEDS ORDERED: [UNRECOGNIZED DRUG - OTHER] SQ SCH (09:00)
[2023-10-02] MEDS ORDERED: INSULIN DEGLUDEC 200 UNIT/ML SQ SCH (09:00)
== END 2023-10-01 12:30 | disposition home or self-care (01) ==
LOC: CSHSDC 05:45
PROVIDERS: ATTEND Orthopaedic Surgery
PROC: 0JH70MZ Insertion of Stimulator Generator into Back Subcutaneous Tissue and Fascia, Open Approach (ICD-10-PCS; principal; 2023-10-01)
PROC: 00HV0MZ Insertion of Neurostimulator Lead into Spinal Cord, Open Approach (ICD-10-PCS; 2023-10-01)
DX: M54.50 Low back pain, unspecified (principal); G89.4 Chronic pain syndrome; Z88.8 Allergy status to other drugs, medicaments and biological substances; I10 Essential (primary) hypertension; J44.9 Chronic obstructive pulmonary disease, unspecified; F17.210 Nicotine dependence, cigarettes, uncomplicated; E11.9 Type 2 diabetes mellitus without complications; Z79.899 Other long term (current) drug therapy
CPT/HCPCS: 63655; 63685; 72100; 80048; 85027; 85610; 85730; C1778; C1820; C1889; J0171; J3010; L8689; 36415; J1100; J2250; J2370; J2405; J2704; S0020; S0028